=== PATIENT | male | born 1940 | race Caucasian/White ===

== ENCOUNTER → 2020-11-06 | Outpatient (CLI) | payer OTHER | LOC: M.RAD 10:31 | PROVIDERS: ATTEND Internal Medicine | DX: M47.816 Spondylosis without myelopathy or radiculopathy, lumbar region (principal); M11.261 Other chondrocalcinosis, right knee; M25.761 Osteophyte, right knee; M25.561 Pain in right knee; M25.562 Pain in left knee; M54.5 Low back pain; I70.0 Atherosclerosis of aorta ==